=== PATIENT | female | born 1950 | race Caucasian/White ===

== ENCOUNTER → 2018-07-23 14:58 | Outpatient (CLI) | payer MEDICARE, SELFPAY ==
--- NOTE | 2018-07-23 | DI.CT.S_ITS ---
PROCEDURE: CT SINUS SCREEN WO CON INDICATIONS: SINUS PAIN TECHNIQUE: Noncontrast 3.0 mm axial images acquired from the frontal sinuses to the mid-sella, with coronal and sagittal reformats. For radiation dose reduction, the following was used: automated exposure control, adjustment of mA and/or kV according to patient size. COMPARISON: [facility], CT, HEAD WITHOUT CONTRAST, 08/18/2017, 21:21. FINDINGS: Image quality: Excellent. Maxillary Sinuses: No bony remodeling or destruction. Sinuses are clear. Ethmoid Air Cells: No bony remodeling or destruction. Sinuses are clear. Sphenoid Sinuses: No bony remodeling or destruction. Sinuses are clear. Frontal Sinuses: No bony remodeling or destruction. Sinuses are clear. Ostiomeatal Complexes: Ostiomeatal complexes are patent. No Chato cells. Miscellaneous: Visualized intra-orbital contents are normal. No elvira bullosa or paradoxical turbinate curvature. No nasal septal deviation. IMPRESSION: No active paranasal sinus disease is seen. Dictated by: Zander Hazel M.D. on 07/23/2018 at 15:55 Approved by: Zander Hazel M.D. on 07/23/2018 at 15:56
== END ==
PROVIDERS: Visit Provider Nurse Practitioner Family
DX: J34.89 Other specified disorders of nose and nasal sinuses (principal); R51 Headache
CPT/HCPCS: 70486